=== PATIENT | male | born 1955 | race Two or more races ===

== ENCOUNTER 2021-02-17 05:00 | Day surgery (SDC) | payer OTHER ==
[~2021-02-17 05:00] MED LIST: ATORVASTATIN CA10 MG PO; TAMS0.4C PO
== END 2021-02-17 17:30 | disposition home or self-care (01) ==
LOC: CIR.AMB 05:00
PROVIDERS: ATTEND Specialist
DX: K40.91 Unilateral inguinal hernia, without obstruction or gangrene, recurrent (principal); D17.5 Benign lipomatous neoplasm of intra-abdominal organs; Z20.822 Contact with and (suspected) exposure to COVID-19